=== PATIENT | male | born 1985 | race Two or more races ===

== ENCOUNTER 2023-05-05 19:28 | Emergency (ER) | payer OTHER ==
[~2023-05-05] VITALS: Ht 170.2 cm; Wt 99.1 kg
[2023-05-05 19:52] VITALS: TEMP 98.5
[2023-05-05] MEDS ORDERED: IBUPROFEN 600 MG TABLET PO ONE (21:00)
[2023-05-05 21:44] VITALS: BP 122/79; PULSE 78; RESP 16
== END 2023-05-05 21:44 | disposition home or self-care (01) ==
LOC: EMS 19:28
DX: S00.83XA Contusion of other part of head, initial encounter (principal); Y04.8XXA Assault by other bodily force, initial encounter; Y93.89 Activity, other specified; Y92.89 Other specified places as the place of occurrence of the external cause; Y99.0 Civilian activity done for income or pay
CPT/HCPCS: 70486; 99284; Z7502; Z7610

== ENCOUNTER 2023-05-07 16:13 | Emergency (ER) | payer OTHER ==
[~2023-05-07] VITALS: Ht 170.2 cm; Wt 98.0 kg
[2023-05-07 16:15] VITALS: TEMP 98
[2023-05-07 17:55] VITALS: BP 137/85; PULSE 76; RESP 15
== END 2023-05-07 18:07 | disposition home or self-care (01) ==
LOC: EMS 16:17
DX: S09.90XA Unspecified injury of head, initial encounter (principal); Y04.8XXA Assault by other bodily force, initial encounter; Y93.89 Activity, other specified; Y92.89 Other specified places as the place of occurrence of the external cause; Y99.8 Other external cause status
CPT/HCPCS: 99281; Z7502